=== PATIENT | male | born 1935 | race Caucasian/White ===

== ENCOUNTER 2018-08-08 13:44 | Emergency (ER) | payer MEDICARE ==
[~2018-08-08] VITALS: Ht 170.2 cm; Wt 86.2 kg
--- NOTE | 2018-08-08 14:05 | NUR ---
BIB CAREGIVER FRM HOME C/O R KNEE PAIN/SWELLING S/P FALL YESTERDAY MORNING. USES WALKER TO AMBULATE. SKIN INTACT. NO ACUTE DISTRESS NOTED. READY FOR EVAL.
--- NOTE | 2018-08-08 14:20 | NUR ---
PT REFUSING BLOOD DRAW. MD AWARE
[2018-08-08] MEDS ORDERED: CITA40TA11 PO (14:21)
[2018-08-08] MEDS ORDERED: DIGO125T20 PO (14:21)
[2018-08-08] MEDS ORDERED: CLON0.5T12 PO (14:21)
[2018-08-08] MEDS ORDERED: OXYB15TA PO (14:21)
[2018-08-08] MEDS ORDERED: ESZO3TAB27 PO (14:21)
[2018-08-08] MEDS ORDERED: METO-358 PO (14:21)
[2018-08-08] MEDS ORDERED: RIVA10TA PO (14:21)
--- NOTE | 2018-08-08 15:35 | NUR ---
Patient discharged to home in stable condition. Written and verbal after care instructions given. Patient verbalizes understanding of instruction.
[2018-08-08 15:43] VITALS: BP 114/68
== END 2018-08-08 15:35 | disposition home or self-care (01) ==
LOC: ER 13:44
DX: S80.01XA Contusion of right knee, initial encounter (principal); M25.461 Effusion, right knee; I48.91 Unspecified atrial fibrillation; I10 Essential (primary) hypertension; Z95.0 Presence of cardiac pacemaker; Z60.2 Problems related to living alone; W01.0XXA Fall on same level from slipping, tripping and stumbling without subsequent striking against object, initial encounter; Y93.89 Activity, other specified; Y92.89 Other specified places as the place of occurrence of the external cause; Y99.8 Other external cause status
CPT/HCPCS: 73564-TC